=== PATIENT | female | born 1975 | race African-American/Black ===

== ENCOUNTER 2016-06-01 06:20 | Day surgery (SDC) | payer OTHER ==
[2016-05-27 17:51] VITALS: BMI 40.8
--- NOTE | 2016-05-31 19:10 | HP ---
[facility] - Chief [facility] Chief Complaint: This patient c/o multiple episodes of post coital bleeding and is admitted to evaluate this problem. History of Present Illness: Pt c/o senior living complaint of post coital vaginal bleeding and is very concerned she may have a serious problem. History Source: Patient Limitations to Obtaining History: No Limitations - Past Medical History Allergies/Adverse Reactions: Allergies Allergy/AdvReac Type Severity Reaction Status Date / Time No Known Drug Allergies Allergy Verified 05/27/16 17:52 [employer]PECTOR: No: Alzheimer's, CVA, Dementia, Migraine, Multiple Sclerosis, Peripheral Neuropathy, Parkinson's, Seizure, Syncope, TIA, Vertigo, Other Cardiovascular: No: AFIB, Aneurysm, Aortic Insufficiency, Aortic Stenosis, CAD, CHF, Deep Vein Thrombosis, HTN, Hyperlipdemia, MT, Mitral Insufficiency, Mitral Stenosis, Murmur, Pulmonary Hypertension, Other Pulmonary: No: Asthma, Bronchitis, Cancer, COPD, O2 Dependent, Pneumonia, Previously Intubated, Pulmonary Embolus, Pulmonary Fibrosis, Sleep Apnea, Other Gastrointestinal: No: Ascites, Cancer, Constipation, Crohn's Disease, Diverticulitis, Diverticulosis, Esophageal Varices, Gastritis, GERD, GI Bleed, Hemorrhoids, Hiatal Hernia, Inflamatory Bowel Disease, Irritable Bowel Disease, Pancreatitis, Peptic Ulcer Disease, Ulcerative Colitis, Other Hepatobiliary: No: Cirrhosis, Cholelithiasis, Cholecystitis, Choledocholithiasis , Hepatitis A, Hepatitis B, Hepatitis C, Other Renal/: No: Renal Failure, Renal Inusuff, BPH, Cancer, Hematuria, Hemodialysis , Neurogenic Bladder, Renal Calculi, UTI, Other Reproductive: No: Ectopic , Endometriosis, Fibroids, PID, Polycystic Ovary Syndrome, Postmenopausal, Other ...LMP: 05/15/16 ...LMP Comment: REGULAR ...: No ...: 4 ...Para: 2 Heme/Onc: No: Anemia, B12 Deficiency, Bleeding Disorder, Cancer, Current Chemotherapy, Current Radiation Therapy, Hemochromatosis, Hypercoaguable State, Myeloproliferative Synd, Sickle Cell Disease, Sickle Cell Trait, Thrombocytopenia, Other Infectious Disease: No: AIDS, C-Diff, Herpes Zoster, HIV, MRSA, STD's, Tuberculosis, VREF, Other Musculoskeletal: No: Bursitis, Chronic low back pain, Hemiparesis, Hemiplegia, Osteoarthritis, Paraplegia, Other Rheumatology: No: Fibromyalgia, Gout, Lupus, Rheumatoid Arthritis, Sarcoidosis, Vasculitis, Other ENT: No: Allergic Rhinitis, Sinusitis, Other Endocrine: No: Parish's Disease, [place]'s Disease, Diabetes Insipidus, Diabetes Mellitus, Hyperparathyroidism, Hyperthyroidism, Hypothyroidism, Osteopenia, SIADH, Other Dermatology: No: Basal Cell, Cellulitis, Eczema, Melanoma, Psoriasis, Squamous Cell, Other - Current Medications Current Medications: Home Medications Medication Instructions Recorded Ibuprofen/Famotidine [Duexis 1 tab PO PRN 05/27/16 800-26.6 mg Tablet] Satellite Physical Exam - Physical Examination General Appearance: Well Nourished, Well Developed, Alert & Oriented x3 ENT: Clear, No Discharge, No masses Lung: Clear to auscultation Heart: Regular rate & rhythm, Normal S1, Normal S2 Breasts: Soft, Non-Tender, No masses bilaterally Abdomen: Soft, No tenderness, No CVA Extremities: No edema, No tenderness/swelling Pelvic Exam: Within normal limits External Genitalia, Within normal limits Vagina, Within normal limits Cervix, Within normal limits Uterus, Within normal limits [employer] Satellite Impression/Plan - Impression/Plan Impression: post coital bleeding Operative Procedure: Hysteroscopy,D/C and cervical biopsies Date to be Performed: 06/01/16
[2016-06-01] MEDS ORDERED: PROPOFOL 20 ML ONE ×2 (07:52)
[2016-06-01] MEDS ORDERED: LIDOCAINE HCL/PF 2% SDV 5ML VIAL ONE (07:52)
[2016-06-01] MEDS ORDERED: MIDAZOLAM HCL 2 MG/2 ML SINGLE DOSE VIAL ONE (07:52)
[2016-06-01] MEDS ORDERED: ceFAZolin SODIUM 1 GM VIAL ONE (08:15)
[2016-06-01] MEDS ORDERED: ceFAZolin SODIUM 1 GM VIAL IVPB ONE (08:19)
[2016-06-01] MEDS ORDERED: oxyCODONE HCL 5 MG TABLET PO PRN (08:27)
[2016-06-01] MEDS ORDERED: ONDANSETRON 4 MG/2 ML VIAL IVPUSH PRN (08:27)
[2016-06-01] MEDS ORDERED: IBUPROFEN 800 MG/8 ML IJ IVPB PRN (08:27)
[2016-06-01] MEDS ORDERED: LACTATED RINGERS SOLUTION 1,000 ML IV SCH (08:30)
[2016-06-01] MEDS ORDERED: IBUPROFEN 800 MG/8 ML IJ IVPB ONE (09:07)
--- NOTE | 2016-06-01 10:21 | OP ---
06/01/2016 PREOPERATIVE DIAGNOSIS: Postcoital and contact vaginal bleeding, probable chronic cervicitis. POSTOPERATIVE DIAGNOSIS: Postcoital and contact vaginal bleeding, probable chronic cervicitis. OPERATIVE PROCEDURE: Hysteroscopy, dilatation and curettage, endocervical curettage, colposcopy, loop electrosurgical excision procedure cervical biopsy. SURGEON: Darron Barlow MD ANESTHESIA: MAC, given by Dr. Styles. ESTIMATED BLOOD LOSS: 5 mL. DESCRIPTION OF PROCEDURES: This patient was brought to the operating room, placed in the supine position, given anesthesia by Dr. Styles, placed in a lithotomy position, prepped and draped in the usual manner. The patient was examined. The uterus was noted to be anteverted. Adnexa negative. The cervix was examined colposcopically, and after the patient was treated acetic acid, the colposcopic examination was negative. However, the patient was bleeding in the 9 o'clock position of the exocervix from contact with the sponge imbibed in acetic acid or vinegar. The colposcopic examination was negative. After this, the anterior lip of the cervix was grasped with a tenaculum. The uterus was sounded to 7 cm. the cervix was dilated with Fuentes dilators, and ECC was carried out with a small curette. This was followed by biopsies of the cervix at 9 o'clock, 12 o'clock, and 3 o'clock. Hysteroscopy was then performed. The endometrial cavity appeared normal. A dilatation and curettage was performed and endometrial biopsies were taken. The patient did well. The estimated blood loss was 5 mL. The patient was then transferred to the recovery room in good condition with good hemostasis. The cervix was cauterized using a 5-mm electrode after the biopsies of the cervix were taken. The patient did well and went to the recovery room. Rani [id number]
[2016-06-01 10:49] VITALS: TEMP 98.3
[2016-06-01 12:15] VITALS: BP 106/54; PULSE 71
--- NOTE | 2016-06-02 14:58 | PATH ---
Surgical Pathology Report Patient Name: LIZANDRO ASIF [facility] [place]. Rec. #: [id number] /Age/Gender: 1975 (Age: 41) / F Account: [id number] Location: [facility] SURGICAL Taken: 06/01/2016 Received: 06/01/2016 Reported: 06/02/2016 Physicians: Darron Barlow M.D. Specimen(s) Received A: CERVICAL BIOPSY 3:00 B: CERVICAL BIOPSY 9:00 C: CERVICAL BIOPSY 12:00 D: ENDOCERVICAL CURETTINGS E: ENDOMETRIAL CURETTINGS Clinical History Postcoital bleeding Final Diagnosis A. CERVIX, 3:00, BIOPSY: FRAGMENT OF DENUDED BENIGN CERVICAL STROMA WITH MILD CHRONIC CERVICITIS. NO SQUAMOUS EPITHELIUM PRESENT. B. CERVIX, 9:00, BIOPSY: ECTOCERVICAL MUCOSA WITH REACTIVE EPITHELIAL AND ATROPHIC CHANGES. C. CERVIX,12:00, BIOPSY: ECTOCERVICAL MUCOSA WITH CHRONIC CERVICITIS, REACTIVE EPITHELIAL AND ATROPHIC CHANGES. D. ENDOCERVIX, CURETTAGE: FRAGMENTS OF BENIGN ENDOCERVICAL TISSUE WITH SQUAMOUS METAPLASIA. FRAGMENTS OF BENIGN SQUAMOUS EPITHELIUM WITH CHRONIC INFLAMMATION. FRAGMENTS OF SECRETORY ENDOMETRIUM. E. ENDOMETRIUM, CURETTAGE: POLYPOID AND NON-POLYPOID FRAGMENTS OF SECRETORY ENDOMETRIUM. FRAGMENTS OF BENIGN SMOOTH MUSCLE. Electronically Signed Kenton James M.D. Gross Description A. Received in formalin labeled "3:00 cervical biopsy" is a 0.5 x 0.4 x 0.1 cm latham, unoriented portion of soft tissue, consistent with a cervix biopsy. The specimen is partially surfaced by a latham, shiny glistening mucosa. The specimen is inked green, bisected and entirely submitted in one cassette. B. Received in formalin labeled "9:00 cervical biopsy" is a 0.9 x 0.5 x 0.2 cm latham, unoriented portion of soft tissue, consistent with a cervix biopsy. The specimen is partially surfaced by a latham, shiny glistening mucosa. The specimen is inked green, serially sectioned and entirely submitted in one cassette. C. Received in formalin labeled "12:00 cervical biopsy" is a 1.0 x 0.7 x 0.1 cm latham, unoriented portion of soft tissue, consistent with a cervix biopsy. The specimen is partially surfaced by a latham, shiny glistening mucosa. The specimen is inked green, serially sectioned and entirely submitted in one cassette. D. Received in formalin labeled "endocervical curetting" is a 1.3 x 1.3 x 0.3 cm aggregate of latham soft tissue fragments. The formalin is filtered and the specimen is entirely submitted in one cassette. E. Received in formalin labeled "endometrial curettings" is a 1.0 x 1.0 x 0.3 cm aggregate of latham soft tissue fragments. The formalin is filtered and the specimen is entirely submitted in one cassette. 06/01/2016 [facility]06/01/2016
== END 2016-06-01 11:50 | disposition home or self-care (01) ==
LOC: JASU-SURG 06:20
PROVIDERS: ATTEND Obstetrics & Gynecology
PROC: 0UDB8ZX Extraction of Endometrium, Via Natural or Artificial Opening Endoscopic, Diagnostic (ICD-10-PCS; principal; 2016-06-01 08:00)
PROC: 0UBC7ZX Excision of Cervix, Via Natural or Artificial Opening, Diagnostic (ICD-10-PCS; 2016-06-01 08:00)
DX: N93.0 Postcoital and contact bleeding (principal); N72 Inflammatory disease of cervix uteri
CPT/HCPCS: 84703; 88305-TC; 94760